=== PATIENT | male | born 1965 ===

== ENCOUNTER 2025-07-05 05:00 | Outpatient (RCR) | payer OTHER, SELFPAY | END 2025-08-03 23:59 | disposition home or self-care (01) | LOC: MPT 05:00 | PROVIDERS: Visit Provider Physician Assistant Surgical | DX: Z47.1 Aftercare following joint replacement surgery (principal); Z96.652 Presence of left artificial knee joint | CPT/HCPCS: 97110; 97161 ==

== ENCOUNTER 2025-09-02 08:00 | Outpatient (RCR) | payer OTHER, SELFPAY | END 2025-09-03 23:59 | disposition home or self-care (01) | LOC: MPT 08:00 | PROVIDERS: Visit Provider Physician Assistant Surgical | DX: Z47.1 Aftercare following joint replacement surgery (principal); Z96.652 Presence of left artificial knee joint | CPT/HCPCS: 97110; 97140; 97530; G0283 ==

== ENCOUNTER 2025-09-22 07:58 | Outpatient (RCR) | payer OTHER, SELFPAY | END 2025-09-22 13:34 | disposition home or self-care (01) | LOC: MPT 07:58 | PROVIDERS: Visit Provider Physician Assistant Surgical | DX: Z47.1 Aftercare following joint replacement surgery (principal); Z96.652 Presence of left artificial knee joint | CPT/HCPCS: 97110 ==